=== PATIENT | male | born 1950 | race Caucasian/White ===

== ENCOUNTER 2017-01-06 09:32 | Inpatient (IN) | payer OTHER ==
[~2017-01-06] VITALS: Ht 172.7 cm; Wt 99.0 kg
[~2017-01-06 09:32] MED LIST: AZELASTINE137 MCG/0. BOTH NARES; BENTYL10 MG PO; DHEA25 MG PO; DICLOFENAC SODI25 MG PO; ELAVIL25 MG PO; ENTOCORT EC3 MG PO; FINACEA 15% GEL50 GM TP; FLOMAX0.4 MG PO; FOLIC ACID1 MG PO; IRON325 M1 PO; LEVO-T100 MCG PO; LEVOXYL100 MCG PO; LIDODERM 5% P1 PATCH TD; MICROZIDE12.5 M1 PO; MOVE FREE JOIN1 EACH PO; MUCINEX1200 MG PO; NASCOBAL1 EACH NS; NEURONTIN600 MG PO; NEURONTIN800 MG PO; PENTASA250 MG PO; PRINZIDE 20-121 EACH PO; RESTASIS 01 DROP/0.4 BOTH EYES; SONATA10 MG PO; TOPAMAX100 MG PO; TYLENOL ARTHRI650 MG PO; ULTRAM50 MG PO; UROCIT-K15 MEQ PO; WELLBUTRIN SR150 MG PO; WELLBUTRIN XL150 MG PO; ZYRTEC10 M2 PO; [UNRECOGNIZED DRUG - OTHER] PO
[2017-01-06 11:28] VITALS: BP 159/95
[2017-01-06 17:41] VITALS: BP 154/84
[2017-01-06 18:10] LABS: HEMATOCRIT 41.5 % (38.0-50.0); MCV 98.6 FL (86-99)
[2017-01-06 20:22] VITALS: BP 117/67
[2017-01-07 00:30] VITALS: BP 130/77
[2017-01-07 04:12] VITALS: BP 122/75
[2017-01-07 06:55] LABS: ANION GAP 8 MEQ/L (2-14); CHLORIDE 102 MEQ/L (99-109); GFR ESTIMATE (CALCULATED) > 59 mL/min/; GLUCOSE 116 mg/dL (70-99); POTASSIUM 4.1 MEQ/L (3.7-5.4); SAMPLE HEMOLYSIS CHECK 0; SAMPLE ICTERIC CHECK 0; SAMPLE LIPEMIA CHECK 0; SODIUM 137 MEQ/L (136-147); UREA NITROGEN (BUN) 19 mg/dL (9-23)
[2017-01-07 08:00] VITALS: BP 138/73
[2017-01-07 16:03] VITALS: BP 135/69
[2017-01-07 20:01] VITALS: BP 151/79
[2017-01-08 00:30] VITALS: BP 137/70
[2017-01-08 04:30] VITALS: BP 142/71
[2017-01-08 08:00] VITALS: BP 156/70
[2017-01-08 12:00] VITALS: BP 143/70
[2017-01-08] MEDS ORDERED: XARELTO10 MG PO (14:15)
[2017-01-08] MEDS ORDERED: OXYCONTIN20 MG PO (14:16)
[2017-01-08] MEDS ORDERED: OXYCODONE HCL5 MG PO (14:19)
== END 2017-01-08 15:19 | DRG 470 ==
LOC: 2SOUTH 09:32 → 3WEST 10:02 → 2SOUTH 10:36 → 3WEST 17:24
PROVIDERS: Orthopaedic Surgery Sports Medicine
PROC: 0SRC0J9 Replacement of Right Knee Joint with Synthetic Substitute, Cemented, Open Approach (ICD-10-PCS; principal; 2017-01-06)
DX: M17.11 Unilateral primary osteoarthritis, right knee (principal); K50.90 Crohn's disease, unspecified, without complications; M06.9 Rheumatoid arthritis, unspecified; B02.29 Other postherpetic nervous system involvement; F32.9 Major depressive disorder, single episode, unspecified; G89.29 Other chronic pain; L71.9 Rosacea, unspecified; N40.0 Benign prostatic hyperplasia without lower urinary tract symptoms; Z82.49 Family history of ischemic heart disease and other diseases of the circulatory system; Z68.33 Body mass index [BMI] 33.0-33.9, adult; Z85.820 Personal history of malignant melanoma of skin; Z87.442 Personal history of urinary calculi; Z82.0 Family history of epilepsy and other diseases of the nervous system
CPT/HCPCS: 73560; 80048; 85014; 85018; C1713; J0131; J0690; J1170; J1885; J2250; J2405; J2795; J3010; J7030; J7050; L1820

== ENCOUNTER 2017-01-11 06:16 | Inpatient (IN) | payer OTHER ==
[~2017-01-11] VITALS: Ht 172.7 cm; Wt 100.3 kg
[~2017-01-11 06:16] MED LIST changes: +OXYCODONE HCL5 MG PO; +OXYCONTIN20 MG PO; +XARELTO10 MG PO
[2017-01-11 07:20] LABS: BASOPHIL COUNT 0.1 K/uL (0-0.1); EOSINOPHIL (%) 3.8 % (0-5); EOSINOPHIL COUNT 0.3 K/uL (0-0.3); HEMATOCRIT 36.4 % (38.0-50.0); IMMATURE GRANULOCYTE (%) 1.2 % (0.0-0.7); IMMATURE GRANULOCYTE COUNT 0.1 K/uL; LYMPHOCYTE COUNT 0.9 K/uL (1.0-2.8); MCH 32.4 PG (29.0-34.0); MCHC 32.7 G/DL (30.0-36.0); MCV 99.2 FL (86-99); MEAN PLAT.VOLUME 9.4 uM^3 (9.0-12.4); MONOCYTE (%) 10.4 % (3-12); MONOCYTE COUNT 0.9 K/uL (0-0.8); NEUTROPHIL (%) 73.3 % (45-76); PLATELET COUNT 173 K/uL (156-360); RBC DIS.WIDTH-CV 12.8 % (11.8-14.6); RBC DIS.WIDTH-SD 46.6 % (39-53); RED BLOOD COUNT 3.67 M/uL (4.00-5.50); WHITE BLOOD COUNT 8.2 K/uL (4.1-10.2)
[2017-01-11 08:00] LABS: ANION GAP 12 MEQ/L (2-14); CHLORIDE 99 MEQ/L (99-109); GFR ESTIMATE (CALCULATED) > 59 mL/min/; GLUCOSE 104 mg/dL (70-99); POTASSIUM 3.9 MEQ/L (3.7-5.4); SAMPLE HEMOLYSIS CHECK 0; SAMPLE ICTERIC CHECK 0; SAMPLE LIPEMIA CHECK 0; SODIUM 137 MEQ/L (136-147); UREA NITROGEN (BUN) 18 mg/dL (9-23)
[2017-01-11] MEDS ORDERED: WELLBUTRIN100 MG PO (10:46)
[2017-01-11] MEDS ORDERED: POTASSIUM CITR10 MEQ PO ×2 (10:52)
[2017-01-11] MEDS ORDERED: FLOMAX0.4 MG PO (10:53)
[2017-01-11 12:10] VITALS: BP 188/85
[2017-01-11 12:25] VITALS: BP 188/85
[2017-01-11 16:05] VITALS: BP 160/77
[2017-01-11 19:39] VITALS: BP 181/87
[2017-01-11 23:50] VITALS: BP 161/77
[2017-01-12] VITALS (8 sets, daily range): BP systolic 115–164; BP diastolic 68–82
[2017-01-12 02:52] LABS: HEMATOCRIT 34.6 % (38.0-50.0); MCH 32.7 PG (29.0-34.0); MCHC 32.9 G/DL (30.0-36.0); MCV 99.1 FL (86-99); MEAN PLAT.VOLUME 8.8 uM^3 (9.0-12.4); PLATELET COUNT 188 K/uL (156-360); RBC DIS.WIDTH-CV 12.8 % (11.8-14.6); RBC DIS.WIDTH-SD 46.1 % (39-53); RED BLOOD COUNT 3.49 M/uL (4.00-5.50); WHITE BLOOD COUNT 7.7 K/uL (4.1-10.2)
[2017-01-12 03:03] LABS: D-DIMER ELISA > 4.00 mg/L FEU (< 0.57)
[2017-01-12 03:09] LABS: CHLORIDE 103 mEq/L (99-109); POTASSIUM 3.7 mEq/L (3.7-5.4); SODIUM 137 mEq/L (136-147)
[2017-01-12 03:10] LABS: GLUCOSE 103 mg/dL (70-99)
[2017-01-12 03:12] LABS: ANION GAP 11 MEQ/L (2-14)
[2017-01-12 03:14] LABS: GFR ESTIMATE (CALCULATED) > 59 mL/min/
[2017-01-12 03:15] LABS: UREA NITROGEN (BUN) 15 mg/dL (9-23)
[2017-01-12 03:24] LABS: TROP-I INTERPRETATION NEGATIVE; TROPONIN-I < 0.01 ng/mL (0.0-0.30)
[2017-01-12 15:27] LABS: TROP-I INTERPRETATION NEGATIVE; TROPONIN-I < 0.01 ng/mL (0.0-0.30)
[2017-01-13 05:51] VITALS: BP 162/78
[2017-01-13 07:27] VITALS: BP 161/81
[2017-01-13 09:22] LABS: HEMATOCRIT 33.7 % (38.0-50.0); MCH 33.4 PG (29.0-34.0); MCHC 33.2 G/DL (30.0-36.0); MCV 100.6 FL (86-99); MEAN PLAT.VOLUME 9.4 uM^3 (9.0-12.4); PLATELET COUNT 205 K/uL (156-360); RBC DIS.WIDTH-CV 12.8 % (11.8-14.6); RBC DIS.WIDTH-SD 46.8 % (39-53); RED BLOOD COUNT 3.35 M/uL (4.00-5.50); WHITE BLOOD COUNT 7.6 K/uL (4.1-10.2)
[2017-01-13 09:36] LABS: PROTHROMBIN TIME 10.6 (9.2-11.2)
[2017-01-13 10:13] LABS: ANION GAP 10 MEQ/L (2-14); CHLORIDE 101 MEQ/L (99-109); GFR ESTIMATE (CALCULATED) > 59 mL/min/; GLUCOSE 102 mg/dL (70-99); SAMPLE HEMOLYSIS CHECK 0; SAMPLE ICTERIC CHECK 0; SAMPLE LIPEMIA CHECK 0; SODIUM 137 MEQ/L (136-147); UREA NITROGEN (BUN) 13 mg/dL (9-23)
[2017-01-13 11:44] VITALS: BP 149/74
[2017-01-13 11:51] LABS: TROP-I INTERPRETATION NEGATIVE; TROPONIN-I < 0.01 ng/mL (0.0-0.30)
[2017-01-13 15:47] VITALS: BP 154/83
[2017-01-13 19:28] VITALS: BP 148/70
[2017-01-13 23:34] VITALS: BP 136/73
[2017-01-14 03:50] VITALS: BP 159/80
[2017-01-14 07:05] LABS: PROTHROMBIN TIME 10.6 (9.2-11.2)
[2017-01-14 07:39] VITALS: BP 160/85
[2017-01-14 11:23] VITALS: BP 152/77
[2017-01-14 14:57] VITALS: BP 147/70
[2017-01-14 19:37] VITALS: BP 153/79
[2017-01-14 23:27] VITALS: BP 129/71
[2017-01-15 03:40] VITALS: BP 123/78
[2017-01-15 07:58] VITALS: BP 153/77
[2017-01-15 09:13] LABS: INTER. NORMALIZED RATIO 1.1; PROTHROMBIN TIME 11.4 (9.2-11.2)
[2017-01-15 11:02] VITALS: BP 132/70
[2017-01-15 13:07] LABS: APPEARANCE RED/BLOODY
[2017-01-15 13:08] LABS: CRYSTALS NO CRYSTALS SEEN
[2017-01-15 13:27] LABS: MONONUCLEAR WBC'S 19 %; POLYNUCLEAR WBC'S 91 % (0-25); SYNOVIAL FLUID EOSINOPHILS 0 % (0-25)
[2017-01-15 18:01] LABS: INTER. NORMALIZED RATIO 1.1; PROTHROMBIN TIME 11.4 (9.2-11.2); PTT 38.5 (25-32)
[2017-01-15 19:42] VITALS: BP 135/71
[2017-01-15 23:47] VITALS: BP 108/55
[2017-01-16 03:44] VITALS: BP 100/63
[2017-01-16 06:45] LABS: HEMATOCRIT 30.7 % (38.0-50.0); MCH 33.4 PG (29.0-34.0); MCHC 33.9 G/DL (30.0-36.0); MCV 98.7 FL (86-99); MEAN PLAT.VOLUME 9.3 uM^3 (9.0-12.4); RBC DIS.WIDTH-CV 12.9 % (11.8-14.6); RBC DIS.WIDTH-SD 46.3 % (39-53); RED BLOOD COUNT 3.11 M/uL (4.00-5.50); WHITE BLOOD COUNT 7.5 K/uL (4.1-10.2)
[2017-01-16 06:47] LABS: PLATELET COUNT 321 K/uL (156-360)
[2017-01-16 06:50] LABS: INTER. NORMALIZED RATIO 1.1; PROTHROMBIN TIME 11.7 (9.2-11.2)
[2017-01-16 07:08] LABS: ANION GAP 10 MEQ/L (2-14); CHLORIDE 104 MEQ/L (99-109); GFR ESTIMATE (CALCULATED) > 59 mL/min/; GLUCOSE 101 mg/dL (70-99); POTASSIUM 3.8 MEQ/L (3.7-5.4); SAMPLE HEMOLYSIS CHECK 0; SAMPLE ICTERIC CHECK 0; SAMPLE LIPEMIA CHECK 0; SODIUM 138 MEQ/L (136-147); UREA NITROGEN (BUN) 13 mg/dL (9-23)
[2017-01-16 07:17] VITALS: BP 128/75
[2017-01-16 11:31] VITALS: BP 110/59
[2017-01-16 15:57] VITALS: BP 121/60
[2017-01-16 22:10] VITALS: BP 155/75
[2017-01-16 22:12] VITALS: BP 155/75
[2017-01-17 03:39] VITALS: BP 110/60
[2017-01-17 07:59] LABS: HEMATOCRIT 33.7 % (38.0-50.0); MCH 31.9 PG (29.0-34.0); MCHC 31.8 G/DL (30.0-36.0); MCV 100.6 FL (86-99); PLATELET COUNT 298 K/uL (156-360); RBC DIS.WIDTH-CV 12.8 % (11.8-14.6); RBC DIS.WIDTH-SD 46.9 % (39-53); RED BLOOD COUNT 3.35 M/uL (4.00-5.50); WHITE BLOOD COUNT 8.3 K/uL (4.1-10.2)
[2017-01-17 08:00] VITALS: BP 133/79
[2017-01-17 08:26] LABS: ANION GAP 9 MEQ/L (2-14); CHLORIDE 102 MEQ/L (99-109); GFR ESTIMATE (CALCULATED) > 59 mL/min/; GLUCOSE 99 mg/dL (70-99); POTASSIUM 4.4 MEQ/L (3.7-5.4); SAMPLE HEMOLYSIS CHECK 0; SAMPLE ICTERIC CHECK 0; SAMPLE LIPEMIA CHECK 0; SODIUM 136 MEQ/L (136-147); UREA NITROGEN (BUN) 17 mg/dL (9-23)
[2017-01-17 08:32] LABS: INTER. NORMALIZED RATIO 1.2; PROTHROMBIN TIME 12.5 (9.2-11.2)
[2017-01-17 09:01] LABS: PTT > 150.0 (25-32)
[2017-01-17 11:35] VITALS: BP 125/58
[2017-01-17] MEDS ORDERED: OXYCODONE HCL5 MG PO (14:09)
[2017-01-17] MEDS ORDERED: OXYCONTIN20 MG PO (14:09)
[2017-01-17 16:15] VITALS: BP 131/65
[2017-01-17 20:09] VITALS: BP 133/67
[2017-01-17 23:49] VITALS: BP 119/61
[2017-01-18 07:00] LABS: INTER. NORMALIZED RATIO 1.1; PROTHROMBIN TIME 10.7 (9.2-11.2)
[2017-01-18 07:44] VITALS: BP 129/73
[2017-01-18 16:29] VITALS: BP 148/77
[2017-01-18 23:58] VITALS: BP 109/61
[2017-01-19 07:07] LABS: INTER. NORMALIZED RATIO 1.1; PROTHROMBIN TIME 11.3 (9.2-11.2)
[2017-01-19 07:21] LABS: GFR ESTIMATE (CALCULATED) > 59 mL/min/
[2017-01-19 07:31] VITALS: BP 129/74
[2017-01-19] MEDS ORDERED: ELIQUIS5 MG PO (13:36)
== END 2017-01-19 13:59 | disposition home health service (06) | DRG 856 ==
LOC: EME 06:16 → EDOF 10:20 → 3EAST 10:20 → EDOF 10:26 → 3EAST 12:02
PROVIDERS: Emergency Medicine; Hospitalist; Orthopaedic Surgery; Orthopaedic Surgery Sports Medicine; Physician Assistant
DX: T81.4XXA Infection following a procedure, initial encounter (principal); I26.99 Other pulmonary embolism without acute cor pulmonale; L03.115 Cellulitis of right lower limb; M25.061 Hemarthrosis, right knee; T84.84XA Pain due to internal orthopedic prosthetic devices, implants and grafts, initial encounter; K50.90 Crohn's disease, unspecified, without complications; M79.81 Nontraumatic hematoma of soft tissue; F33.9 Major depressive disorder, recurrent, unspecified; B02.29 Other postherpetic nervous system involvement; E03.9 Hypothyroidism, unspecified; I11.9 Hypertensive heart disease without heart failure; Y83.1 Surgical operation with implant of artificial internal device as the cause of abnormal reaction of the patient, or of later complication, without mention of misadventure at the time of the procedure; N40.0 Benign prostatic hyperplasia without lower urinary tract symptoms; I44.4 Left anterior fascicular block; R09.02 Hypoxemia; R23.3 Spontaneous ecchymoses; E66.9 Obesity, unspecified; I27.2 Other secondary pulmonary hypertension; I77.810 Thoracic aortic ectasia; Z79.01 Long term (current) use of anticoagulants; Z79.2 Long term (current) use of antibiotics; Z86.19 Personal history of other infectious and parasitic diseases; Z91.14 Patient's other noncompliance with medication regimen; Z87.442 Personal history of urinary calculi; Z87.891 Personal history of nicotine dependence; Z96.651 Presence of right artificial knee joint; Z68.33 Body mass index [BMI] 33.0-33.9, adult
CPT/HCPCS: 71010; 71275; 73560; 76937; 80048; 80202; 82565; 82945 91; 84484; 85025; 85027; 85379; 85610; 85651; 85730; 86140; 86900; 86901; 86920; 87040; 87070; 87075; 87205; 89051; 89060; 93005; 93306; 93971; 94799; 97530 GO; 99281; 99285; C1776; J0131; J1170; J1650; J1885; J2270; J2405; J2543; J3010; J3370; J7030; J7050; J7120

== ENCOUNTER → 2017-01-23 | Outpatient (CLI) | payer OTHER ==
[~2017-01-23] VITALS: Ht 172.7 cm; Wt 96.0 kg
[~2017-01-23] MED LIST changes: +ELIQUIS5 MG PO; +POTASSIUM CITR10 MEQ PO; +WELLBUTRIN100 MG PO
[2017-01-23 16:49] VITALS: BP 81/52
[2017-01-23 18:24] VITALS: BP 127/65
== END | disposition home or self-care (01) ==
LOC: IVINF 16:30
DX: E86.0 Dehydration (principal); I95.9 Hypotension, unspecified
CPT/HCPCS: 87040; 96360; J7030